=== PATIENT | male | born 1960 | race Caucasian/White ===

== ENCOUNTER → 2016-09-18 | Outpatient (CLI) | payer OTHER ==
--- NOTE | 2016-09-18 19:40 | CONS ---
DATE OF CONSULTATION: 09/18/2016 CONSULTATION/NEW PATIENT EVALUATION 56-year-old gentleman who has been evaluated in the sleep center for possible obstructive sleep apnea-hypopnea. HISTORY OF PRESENT ILLNESS/SLEEP-WAKE EVALUATION: Patient has problems with his sleep for many years basically not able to sleep normal amount of hours during the night. SLEEP SCHEDULE: He usually goes to bed 3 or 4:00 a.m. and sleeps until 8 or 9:00 a.m. and this is with usage of Amitriptyline 25 mg at bedtime. DURING SLEEP: He wakes up from sleep 4 times with nocturia, dry mouth. He has loud snoring. He also was told about episodes of stopped breathing during sleep. FALLING ASLEEP: Sometimes it takes time for him to fall asleep and again he is taking medications at the time and that helps him. DURING THE DAY/WAKE STATE: During the day feel tiredness and sleepiness, sometimes takes naps. Depue Sleepiness Scale although is 1. PAST MEDICAL HISTORY: Positive for multiple back problems secondary to ( ) and work accident. Patient had extra lumbar vertebra, anxiety. PAST SURGICAL HISTORY: Back surgery, appendectomy and right wrist surgery, right elbow surgery and right knee surgery. MEDICATIONS: 1. Hydrocodone. 2. Naproxen. 3. Soma. 4. Amitriptyline. 5. Motrin. SOCIAL HISTORY: Positive for smoking for about 30 pack-years; quit 10 years ago. Alcohol consumption none at the present time. REVIEW OF SYSTEMS: Multiple awakenings from sleep, tiredness and sleepiness and back pain. No fevers. No double vision. No recent chest pain. No shortness of breath. No abdominal pain. No bleeding episodes. No blood in urine. No seizure episodes. FAMILY HISTORY: Diabetes, fibromyalgia, arthritis. PHYSICAL EXAMINATION: GENERAL: This is a pleasant 56-year-old gentleman without distress. VITAL SIGNS: BP 132/78, HR 82, RR 16. Height 6 feet 3 inches. Weight 309. BMI 38.6. Neck 19 inches in circumference. Temperature 97.6, oxygen saturation at room air 94%. HEENT: PERRLA, EOMI oropharynx low position of soft palate. Nose, possibly nasal septum deviation. NECK: Supple. No JVD. Thyroid is not palpable. LUNGS: Clear to percussion and to auscultation. Good air exchange. No wheezing or rhonchi. HEART: S1, S2 regular. No murmurs, gallops or rubs. ABDOMEN: Slightly obese. EXTREMITIES: No clubbing or cyanosis. CADDY/CADDIE SUPERVISOR: Awake, alert, and oriented x3. Cranial nerves 2 to 7 intact. There is no fasciculation or atrophy noted. No focal deficits observed. IMPRESSION: 1. Snoring, witnessed episodes of stopped breathing during sleep, low position of soft palate, multiple awakenings from sleep. Patient takes naps during the week, obstructive sleep apnea-hypopnea syndrome. 2. Obesity; body mass index 38.6. 3. Sleep delay syndrome. Patient goes to bed every night around 3 or 4 a.m. 4. Back problems. 5. Status post back surgery on the level of L4 an dL5. 6. Spina bifida and extra vertebra L6. 7. Anxiety. 8. Difficulties initiating sleep at night, possibly secondary to anxiety. 9. Status post right knee surgery. 10. Status post laminectomy, L4-L5. 11. Status post right wrist surgery. 12. Status post left shoulder and rotator cuff surgery. 13. Status post right elbow surgery. 14. Status post appendectomy. PLAN: 1. Polysomnography for evaluation of patient's breathing during sleep. 2. CPAP/BiPAP titration if sleep study confirms obstructive sleep apnea-hypopnea syndrome. 3. Preferable position during sleep on the side. 4. No driving if patient feels any sleepiness. Patient is aware of civil and criminal liability for unsafe driving. 5. I will see patient for follow-up visit to explain results of the testing and following plan. Thank you very much for referring this patient for consultation. Sincerely, Ivan Greco MD, PhD, FAASM. Diplomat of [place] [employer], Sleep Medicine Board by [employer] [place] [employer] Certified Registered Dental Assistant of [facility] [place]
== END | disposition home or self-care (01) ==
LOC: SLEEP 14:14
PROVIDERS: ATTEND Internal Medicine
DX: G47.33 Obstructive sleep apnea (adult) (pediatric) (principal); E66.9 Obesity, unspecified; F41.9 Anxiety disorder, unspecified; Q05.7 Lumbar spina bifida without hydrocephalus; Q76.49 Other congenital malformations of spine, not associated with scoliosis; Z68.38 Body mass index [BMI] 38.0-38.9, adult; Z98.890 Other specified postprocedural states; Z79.891 Long term (current) use of opiate analgesic; Z79.1 Long term (current) use of non-steroidal anti-inflammatories (NSAID); Z79.899 Other long term (current) drug therapy
CPT/HCPCS: 99211

== ENCOUNTER → 2017-04-09 | Outpatient (CLI) | payer OTHER ==
--- NOTE | 2017-04-09 14:35 | PN ---
PROGRESS NOTE DATE OF SERVICE: 04/09/2017. 56-year-old gentleman has been followed in Sleep Center for treatment of obstructive sleep apnea-hypopnea syndrome. The patient was diagnosed with obstructive sleep apnea- hypopnea syndrome about 6 months ago. Since that time, he is on treatment with CPAP and I discussed results of sleep studies with the patient in details. During diagnostic sleep study, he had apnea-hypopnea index 12.9 for the whole night, which is in mild range, but close to moderate. In REM sleep it was in severe range index was 48.8. Lowest oxygen level was 76.4%. During titration, effective pressure was 8 cm of water and subsequently patient was started on treatment with CPAP at that pressure. Today he came for followup visit with his CPAP unit. I checked CPAP unit. The patient is using equipment 28 out of 30 nights for more than 4 hours. Average 6.6 hours, which is good compliance with treatment. Mask fitting is 99%, which is great. Apnea- hypopnea index is only 1.2, which is perfect. Patterson Sleepiness Scale today is 3. MEDICATIONS: 1. Hydrocodone. 2. Ibuprofen. 3. . 4. Amitriptyline. 5. Hydroxyzine. 6. Carisoprodol. PHYSICAL EXAM: Patient in no distress. BP 150/82, HR 100, RR 16, weight 310, temp 97.9, oxygen saturation on room air 94%. Oropharynx extremely low position of soft palate. Abdomen slightly obese. Neck Supple, no JVD. Thyroid is not palpable. LUNGS Clear to percussion and to auscultation. Good air exchange. No wheezing or rhonchi. HEART S1, S2 regular. No murmurs, gallops, or rubs. ABDOMEN Soft and nontender. Bowel sounds are present. No organomegaly appreciated. EXTREMITIES No clubbing or cyanosis. MACHINE HAND Awake, alert, and oriented X3. Cranial nerves 2 to 7 intact. There is no fasciculation or atrophy. noted. No focal deficits observed. IMPRESSION: 1. Mild obstructive sleep apnea-hypopnea syndrome, severe in REM sleep on full control with CPAP at 8 cm of water. Patient demonstrated practically 100% compliance with treatment benefitting from treatment. 2. Obesity. 3. Back problems. 4. A history of sleep delay syndrome. 5. Status post back surgery in the level L4-5. 6. History of spina bifida. 7. Anxiety. 8. Status post right knee surgery. 9. Status post laminectomy, L4, L5. 10.Status post right wrist surgery. 11.Status post left shoulder rotator cuff surgery. 12.Status post right elbow surgery. 13.Status post appendectomy. PLAN: 1. Continue treatment with CPAP every night for the whole night. 2. Losing weight. 3. Sleep hygiene with regular time in bed for at least 7-8 hours. 4. No driving if feeling sleepiness. 5. Prescription for all necessary CPAP supplies including nasal pillow mask, tube, filters. Thank you very much for allowing me to participate in management of your patient. Sincerely, Ivan Greco MD, PhD, FAASM Diplomat of [place] [employer] [place] Board [employer] Medicine Assistant City Attorney of [facility] [place] [email or web address] / APRIL: [id number] /
== END | disposition home or self-care (01) ==
LOC: SLEEP 12:53
PROVIDERS: ATTEND Internal Medicine
DX: G47.33 Obstructive sleep apnea (adult) (pediatric) (principal); E66.9 Obesity, unspecified; Q05.9 Spina bifida, unspecified; F41.9 Anxiety disorder, unspecified; Z98.890 Other specified postprocedural states; Z79.891 Long term (current) use of opiate analgesic; Z79.1 Long term (current) use of non-steroidal anti-inflammatories (NSAID); Z79.899 Other long term (current) drug therapy

== ENCOUNTER → 2020-08-22 | Outpatient (CLI) | payer OTHER ==
--- NOTE | 2020-08-22 18:34 | CONS ---
CONSULTATION DATE OF SERVICE: 08/22/2020 This 59-year-old gentleman has been re-evaluated in Sleep Center for obstructive sleep apnea-hypopnea syndrome. HISTORY OF PRESENT ILLNESS/SLEEP-WAKE EVALUATION: This patient was diagnosed with obstructive sleep apnea several years ago. At present he continues to use his CPAP equipment every night for the whole night. With the equipment he sleeps well. He does not snore with the machine. His sleep schedule is from 2 or 3 a.m. until 8 a.m. He does have problems with falling asleep and has a TV set in the bedroom. He usually sleeps on the back position. No history of hypnagogic hallucinations, sleep paralysis or cataplexy. [place] Sleepiness Scale is 1, which is normal. I checked his CPAP unit. CPAP pressure is 8 cm of water. Usage is 29/30 nights for more than 4 hours. Average usage is 7.7 hours per night. Mask fit 98%. Apnea-hypopnea index is only 1.2, which is perfect. The patient is using a Daily FX medium nasal pillow mask. PAST MEDICAL HISTORY: Positive for hypertension, back problems, left foot pain. PAST SURGICAL HISTORY: Left knee replacement, right knee surgery, laminectomy L4-L6, appendectomy. SOCIAL HISTORY: Negative for smoking or using alcohol. FAMILY HISTORY: Positive for heart problems, cancer, diabetes. REVIEW OF SYSTEMS: No fevers. No double vision. No recent chest pain. No shortness of breath. No abdominal pain. No bleeding episodes. No blood in the urine. No seizure episodes. Difficulties initiating sleep. PHYSICAL EXAMINATION: GENERAL: A pleasant gentleman without distress. VITAL SIGNS: BP 153/89, HR 85, RR 12, height 6 feet 3 inches, weight 333.0, body mass index 41.6, temperature 97.9. Oxygen saturation at room air 97%. HEENT: PERRLA, EOMI. Evaluation of oropharynx showed tongue protrudes midline. Low position of soft palate. NECK: Supple. No JVD. Thyroid is not palpable. Wide neck; 20 inches in circumference. LUNGS: Clear to percussion and to auscultation. Good air exchange. No wheezing or rhonchi. HEART: S1, S2 regular. No murmurs, gallops or rubs. ABDOMEN: Obese. EXTREMITIES: No clubbing or cyanosis. BROADCAST NEWS PRODUCER: Awake, alert, and oriented X3. Cranial nerves 2 to 7 intact. There is no fasciculation or atrophy. noted. No focal deficits observed. IMPRESSION: 1. History of obstructive sleep apnea-hypopnea syndrome. The patient demonstrated great compliance with CPAP therapy, benefitting from treatment. Normal respiration by reading from CPAP unit. 2. Obesity. Present body mass index 41.6. 3. Hypertension. 4. Back problems. 5. Left foot pain. 6. Status post left knee replacement. 7. Status post right knee surgery. 8. Status post laminectomy L4-L6. PLAN: 1. Prescription for all necessary CPAP supplies, including nasal pillow, medium-sized Daily FX mask, tube, filters. 2. Patient will continue to use CPAP equipment every night for the whole night. 3. Losing weight. 4. Sleep hygiene with regular time in bed for 7-1/2 to 8 hours. 5. No driving if feeling sleepiness. 6. Follow-up visit in 6 months. Thank you very much for allowing me to participate in the management of your patient. Sincerely, Ivan Greco MD, PhD, FAASM Diplomat of [place] [employer] [place] [employer] Medicine Telephone Messenger of [facility] [place] MMODL / IJN: [id number] /
== END | disposition home or self-care (01) ==
LOC: SLEEP 15:36
PROVIDERS: ATTEND Internal Medicine
DX: G47.33 Obstructive sleep apnea (adult) (pediatric) (principal); E66.9 Obesity, unspecified; I10 Essential (primary) hypertension; M43.9 Deforming dorsopathy, unspecified; Z68.41 Body mass index [BMI] 40.0-44.9, adult; Z98.890 Other specified postprocedural states; Z96.652 Presence of left artificial knee joint; M79.672 Pain in left foot

== ENCOUNTER → 2022-05-21 | Outpatient (CLI) | payer OTHER ==
--- NOTE | 2022-05-21 14:41 | NM ---
EXAMINATION TYPE: NM bone 3 phase DATE OF EXAM: 05/21/2022 COMPARISON: NONE HISTORY: Left knee pain Triple phase bone scintigraphy was performed following the injection of 24.7 mCi Tc 99m MDP. Immedia te images and 5 hours post injection images acquired. FINDINGS: There is increased radiotracer accumulation to the left knee compared to the right. Blood pool: There is increased radiotracer through the left knee compared to the right. Left knee pro sthesis is evident. Static images: There is marked increased radiotracer accumulation at the left knee compared to the ri ght. This is greater along the lateral tibial plateau. Correlate with the timing of the patient's cathleen jared. There is some focal radiotracer accumulation in small areas adjacent to the right knee and at the kiersten ateral ankles. This is nonspecific and likely related to degenerative change. Small focal area of rad iotracer is in the posterior right 10th rib region may be a posttraumatic change. IMPRESSION: Increased radiotracer surrounding the left knee greater along the lateral tibial plateau. Correlate w ith the timing of the left knee prosthesis placement. Loosening and postsurgical change could be cons idered.
== END | disposition home or self-care (01) ==
LOC: RADNMMAIN 07:17
PROVIDERS: ATTEND Orthopaedic Surgery Adult Reconstructive Orthopaedic Surgery
DX: M25.562 Pain in left knee (principal); Z96.652 Presence of left artificial knee joint
CPT/HCPCS: 78315; A9503

== ENCOUNTER → 2022-05-29 | Outpatient (CLI) | payer OTHER ==
--- NOTE | 2022-05-30 07:21 | NM ---
EXAMINATION TYPE: NM WBC limited DATE OF EXAM: 05/29/2022 COMPARISON: Three-phase bone scan May 21, 2022. Outside left knee x-ray May 13, 2022. HISTORY: Multiple knee surgeries last being May 2021 with persistent left knee pain. TECHNIQUE: Following administration of 16 mCi Tc99m Ceretec. Images obtained 3 hours post injection . FINDINGS: Lucency from metallic prosthesis left knee is present. Current study shows increased radiot racer uptake surrounding the prosthesis greater involvement in the distal femur though there is some increased radiotracer uptake in the medial tibia. IMPRESSION: Prosthetic infection needs to be considered. Normal white blood cell scan. No evidence for abnormal tracer activity.
== END | disposition home or self-care (01) ==
LOC: RADNMMAIN 06:38
PROVIDERS: ATTEND Orthopaedic Surgery Adult Reconstructive Orthopaedic Surgery
DX: M25.562 Pain in left knee (principal)
CPT/HCPCS: 78300; A9569

== ENCOUNTER → 2022-11-03 | Outpatient (CLI) | payer OTHER ==
[2022-11-03 13:26] LABS: African American GFR (CKD) >90 (>60 ml/min/1.73 sqM); Blood Urea Nitrogen 22 mg/dL (9-20); Non-African American GFR(CKD) >90 (>60 ml/min/1.73 sqM)
--- NOTE | 2022-11-03 15:01 | CT ---
EXAMINATION TYPE: CT angio chest CT DLP: 1488.1 mGycm, Automated exposure control for dose reduction was used. DATE OF EXAM: 11/03/2022 1:54 PM COMPARISON: None. 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 TECHNIQUE/CONTRAST: CTA scan of the thorax is performed with IV Contrast, patient injected with 100ml mL of Isovue 370, p ulmonary embolism protocol. MIP images are created and reviewed these are created on a separate work station.. FINDINGS: Pulmonary Artery: There is no evidence for a central filling defect within the pulmonary vasculature to suggest acute pulmonary embolism. Limited evaluation of the segmental and subsegmental branches se condary to bolus timing. The pulmonary artery is of normal size. Lungs/Pleura: No evidence of focal consolidation, pleural effusion or pneumothorax. Airway: Large airways are patent. Heart: The heart is mildly enlarged for size. Vasculature: No evidence of aortic aneurysm. Mediastinum: No gross evidence of adenopathy. Musculoskeletal: Mild degenerative disc disease changes are present throughout the thoracolumbar spin e. Soft Tissues: Increased density posterior to the nipples bilaterally consistent with gynecomastia. Lower neck: No significant findings. Upper Abdomen: Left hepatic lobe cyst. IMPRESSION: No evidence of central pulmonary embolism. Limited evaluation of the segmental and subsegmental branc hes secondary to poor bolus timing.
== END | disposition home or self-care (01) ==
LOC: RADCTMAIN 12:57
PROVIDERS: ATTEND Internal Medicine Critical Care Medicine
DX: I26.99 Other pulmonary embolism without acute cor pulmonale (principal)
CPT/HCPCS: 82565; 84520; 71275; 36415; Q9967

== ENCOUNTER → 2023-03-23 | Outpatient (CLI) | payer OTHER ==
--- NOTE | 2023-03-23 11:50 | FL ---
EXAMINATION TYPE: FL barium swallow DATE OF EXAM: 03/23/2023 11:31 AM COMPARISON: Chest radiograph from same day. CLINICAL INDICATION:Male, 62 years old with history of R13.12 DYSPHAGIA; Pt c/o intermittent episodes of choking/food getting stuck x a couple of months. TECHNIQUE: The procedure was explained and patient history elicited. All patient questions were ans wered prior to start of procedure. Multiple spot fluoroscopic images of the esophagus were obtained a fter the oral ingestion of effervescent crystals and liquid barium as the contrast agent. Fluoroscopic time: 26 seconds Fluoroscopic images: 0 Radiographs taken: 74 DAP: 2034.23 mGym2 FINDINGS: The esophagus demonstrates normal primary and secondary peristalsis. The esophageal mucosa is smooth without evidence of focal stricture, ulceration, or abnormal outpouching. No gastroesophageal reflu x disease was identified. IMPRESSION: Normal esophagram.
== END | disposition home or self-care (01) ==
LOC: RADUSWWP 10:18
DX: R13.12 Dysphagia, oropharyngeal phase (principal); R09.89 Other specified symptoms and signs involving the circulatory and respiratory systems
CPT/HCPCS: 74220

== ENCOUNTER → 2023-05-26 | Outpatient (CLI) | payer OTHER ==
--- NOTE | 2023-05-26 10:59 | MR ---
EXAMINATION TYPE: MR shoulder LT wo con DATE OF EXAM: 05/26/2023 COMPARISON: Outside radiograph 05/22/2023 HISTORY: 62-year-old male M2 5.512, Left shoulder pain, fell on ice. TECHNIQUE: Multiplanar, multisequence imaging of the left shoulder is performed without contrast. FINDINGS: The exam is motion degraded. There is an interstitial versus tear of the intracapsular port ion of the long head biceps tendon. The extracapsular portion remains appropriately situated along th e bicipital groove with mild tenosynovial fluid. Diffuse heterogeneity of the subscapularis tendon. Some intrasubstance changes present in the majorit y of the tendon remains intact. Moderate to severe degenerative change at the acromioclavicular joint. Inferior spurring as some mass effect on the underlying myotendinous junction of the supraspinatus. There is bursal sided fraying of the supraspinatus tendon with diffuse intrasubstance change but no h igh-grade partial or full-thickness tear is seen. The infraspinatus tendon remains intact. There is a small to moderate acromial/subdeltoid bursal effusion. No atrophy of the rotator cuff musculature. Suspect normal variation with a sublabral foramen along the anterior superior quadrant of the glenoid . There is abnormal signal and heterogeneous appearance along the anterior inferior corner of the gleno id with suspected small fracture at the rim of the glenoid. Adjacent soft tissue swelling. However, no corresponding Hill-Sachs deformity is identified. Joint otherwise intact. Mild thinning of the glenohumeral joint articular cartilage. No significant j oint effusion. Heterogeneous red marrow hyperplasia can be seen with anemia, obesity, smoking, chronic disease. IMPRESSION: 1. Suspect a subtle nondisplaced fracture along the anterior inferior glenoid rim. No corresponding H ill-Sachs deformity to clearly indicate a bony Bankart injury. Clinically correlate. 2. Diffuse contusions of the subscapularis tendon and supraspinatus tendon. The supraspinatus tendon shows scattered intrasubstance change and bursal sided fraying. No high-grade partial or full-thickne ss rotator cuff tear. 3. Either an interstitial versus split tear of the intracapsular portion of the long head biceps tend on. Associated mild tenosynovitis. 4. Moderate subacromial/subdeltoid bursal effusion probably reactive to the patient's injury. 5. Moderate to severe AC joint OA with subacromial impingement.
== END | disposition home or self-care (01) ==
LOC: RADMRIMAIN 08:18
PROVIDERS: ATTEND Orthopaedic Surgery
DX: M19.012 Primary osteoarthritis, left shoulder (principal); M65.812 Other synovitis and tenosynovitis, left shoulder; M25.812 Other specified joint disorders, left shoulder; M75.42 Impingement syndrome of left shoulder; W00.0XXA Fall on same level due to ice and snow, initial encounter

== ENCOUNTER → 2023-06-05 | Outpatient (CLI) | payer OTHER ==
[2023-06-05 12:16] LABS: African American GFR (CKD) >90 (>60 ml/min/1.73 sqM); Blood Urea Nitrogen 25 mg/dL (9-20); Non-African American GFR(CKD) >90 (>60 ml/min/1.73 sqM)
--- NOTE | 2023-06-05 14:06 | CT ---
EXAMINATION TYPE: CT soft tissue neck w con CT DLP: 770 mGycm, Automated exposure control for dose reduction was used. DATE OF EXAM: 06/05/2023 12:35 PM COMPARISON: None. 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 Axial sections with coronal and sagittal reformats were obtained. Contrast used:100 mL of Isovue 300 with IV Contrast, (None if empty) Oral contrast used: (None if empty) FINDINGS: Brain: Visualized portions are grossly unremarkable. Orbits: Unremarkable Sinuses: Grossly unremarkable. Spaces of the neck: Dominant left neck. Tissue mass just deep to the sternocleidomastoid muscle on th e multiple small lymph nodes around this lesion. Largest measures 31 x 30 mm there is thickening of t he mucosa on the left near the base of the tongue compatible with history of left tonsillar neoplasm. A projection off the inferior aspect of this mass suspicious on sagittal imaging series 5 image 78r be a cystic lymph node measuring up to 18 x 13 mm Musculoskeletal: No acute osseous pathology. Lymph nodes: Multiple nonenlarged lymph nodes are seen along both anterior chains of the neck. Vascular structures: Visualized major arteries are patent without evidence of aneurysm. Thoracic Inlet/airway: Airway is patent. The lung apices are clear. Soft tissues/Thyroid: Thyroid and remainder of the soft tissues are unremarkable. Other: none. IMPRESSION Findings concerning for metastatic disease to the neck lymph nodes. Increased soft tissue in the renu on of the left tonsil is also suspicious. Oncologic workup recommended. PET/CTs recommended.
== END | disposition home or self-care (01) ==
LOC: RADCTMAIN 11:40
PROVIDERS: ATTEND Otolaryngology
DX: Z01.818 Encounter for other preprocedural examination (principal); D10.4 Benign neoplasm of tonsil
CPT/HCPCS: 82565; 84520; 70491; 36415; Q9967

== ENCOUNTER → 2023-06-11 | Outpatient (CLI) | payer OTHER ==
--- NOTE | 2023-06-17 13:53 | PE ---
EXAMINATION TYPE: PET CT fusion skull to thigh DATE OF EXAM: 06/11/2023 COMPARISON: CT soft tissue neck 06/05/2023 Prior PET/CT: None at this location HISTORY: Neoplasm of tonsil TECHNIQUE: Following the intravenous administration of 12.61 mCi of F-18 FDG, whole body images are performed from the skull base to the midthigh. Images are reviewed on the computer in the coronal, a xial, and sagittal planes. Reconstructed rotating images are created on independent workstation and reviewed on the computer. A localization and attenuation correction CT is performed in conjunction with the PET scan. Due to severe pain at the shoulder the patient was unable to complete the exam. The exam is limited n anirudh imaging and some limited whole-body images through the upper head and shoulders which point the p atient stopped the exam DLP: 1265.20 mGycm SCAN: Initial Blood glucose: 100 mg/dL Average Mediastinum SUV: Unavailable Average Liver SUV: Unavailable FINDINGS: NECK: There is marked increased radiotracer accumulation within the left tonsil, example image 39, S UV 13.06. There is a large significantly enhancing mass in the left soft tissues at the angle of the left jaw. SUV 13.21, example image 39. Finding is suspicious for a large metastatic lymph node. There are some vague uptake within a lymph node in the posterior triangle left neck. Image 43, SUV 2. 95. Early metastatic lesion is not excluded. Partially visualized left axillary uptake may be present. Is unclear whether this is vascular or a ly mph node. There are multiple scattered lymph nodes without significant uptake present Thorax, abdomen, pelvis, osseous structures through these levels: Procedure terminated prior to imagi ng post PET injection, these areas cannot be evaluated at this time. LOCALIZATION CT: There are multiple bilateral neck lymph nodes present. These are greater on the left than the right. COMPARISON: None IMPRESSION: 1. Marked increased uptake within a left neck mass at the angle of the jaw may be a metastatic lymph node. 2. There is some mild uptake within the posterior left neck lymph node. 3. There are multiple additional lymph nodes present without significant uptake within the bilateral neck. 4. Uptake within the left tonsillar pillar can be compatible with the patient's reported primary. 5. There is limitation of this examination with the procedure being terminated prior to PET imaging b elow the supraclavicular region.
== END | disposition home or self-care (01) ==
LOC: RADPETMAIN 06:47
PROVIDERS: ATTEND Otolaryngology
DX: C09.9 Malignant neoplasm of tonsil, unspecified (principal); R22.1 Localized swelling, mass and lump, neck
CPT/HCPCS: 78815; A9552

== ENCOUNTER → 2023-11-12 | Outpatient (CLI) | payer OTHER ==
--- NOTE | 2023-11-13 14:14 | PE ---
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 Images are reviewed on the computer in the coronal, axial, and sagittal planes. Reconstructed rotating images are created on independent workstation and reviewed on the computer. A non-contrast CT is performed in conjunction with the PET scan. Glucose level 107 mg/dL CT DLP: 1488.52 mGycm, Automated exposure control for dose reduction was used. COMPARISON: CT 06/05/2023, PET/CT 06/11/2023, MRI: None FINDINGS: Mediastinal SUV mean is 3.63. Hepatic parenchyma SUV mean is 4.61. SKULL BASE AND NECK: Marked decreased size of left neck mass at the level 2 region from prior PET/CT with residual FDG avid 1.0 cm nodular region measuring 8.55 maximum SUV, previously measured grossly 4.8 x 2.7 cm with a maximum SUV of 13.21. Stable prominent left submandibular measuring up to 9 mm w ith a maximum SUV of 2.61 which is below background. Markedly decrease in size of previously demonstr ated left tonsillar region lesion with nonvisualization of lesion on today's exam. Marked decrease de crease in SUV activity in this region now measuring 3.19. Previously maximum SUV 13.06. CHEST, MEDIASTINUM, AND HILAR REGION: No suspicious radiotracer activity. Previous seen left axillary uptake is no longer visualized. ABDOMEN AND PELVIS: No suspicious radiotracer activity. MUSCULOSKELETAL STRUCTURES: No suspicious radiotracer activity. OTHER CT: No other significant findings. IMPRESSION: Positive response to therapy with essential resolution of left tonsillar pillar mass with maximal SUV below background. Markedly decreased size of left neck mass at the angle of jaw with residual 1 cm F DG avid nodule within the decreased FDG activity. No new lymphadenopathy or new FDG avid regions iden tified.
== END | disposition home or self-care (01) ==
LOC: RADPETMAIN 13:08
PROVIDERS: ATTEND Radiology Radiation Oncology
DX: C77.0 Secondary and unspecified malignant neoplasm of lymph nodes of head, face and neck (principal); C09.0 Malignant neoplasm of tonsillar fossa; R22.1 Localized swelling, mass and lump, neck
CPT/HCPCS: 78815; A9552

== ENCOUNTER → 2023-12-14 | Outpatient (CLI) | payer OTHER ==
--- NOTE | 2024-01-05 13:32 | CT ---
Patient: Louise Judd R Ordering Physician: Unknown, Unknown ID: [id number] Phone, Pager: Phone: N/ A Pager: N/A : 1960 Age/Gender: 63Y, M Primary Location: N/A Procedure: CT soft tissue neck w o/w con Study Date: 12/14/2023 1:19:00 PM EXAMINATION TYPE: CT soft tissue neck w con DATE OF EXAM: 12/16/2023 COMPARISON: 11/13/2023 PET/CT HISTORY: Throat cancer CT DLP: 1597.7 mGycm CONTRAST: Patient injected with 100 mL of Isovue 300. TECHNIQUE: Axial images at 3 mm thick sections. Reconstructed images in the coronal plane and sagitt al plane are reviewed. FINDINGS: Limited CT sections are obtained the lung apices. The lung apices appear clear. CT neck: The torus tubarius and fossa of Rosenmuller are normal. Topper Press Operator spaces are normal. Para nasal sinuses and mastoid air cells are clear. Parotid glands appear normal and symmetrical. Submandibular glands, are normal. Parapharyngeal spac es are normal. Small left parapharyngeal lymph nodes are present asymmetric with the right. There is a 1.2 cm left submandibular lymph node. Previous measurement 0.9 m. Some additional shoddy l ymphadenopathies in the left submandibular region. The hypopharynx appears within normal limits. Vocal cord level appear symmetrical. Thyroid as visualized is normal. Degenerative disc changes are present C5-6 C6-7. Prevertebral space is normal. Epiglottis appears nor mal. IMPRESSION: 1. 1.2 cm enlarging lymph node left submandibular region corresponds to the PET CT.
== END | disposition home or self-care (01) ==
LOC: RADCTMAIN 11:00
PROVIDERS: ATTEND Radiology Radiation Oncology
DX: C09.0 Malignant neoplasm of tonsillar fossa (principal); C77.0 Secondary and unspecified malignant neoplasm of lymph nodes of head, face and neck; M50.323 Other cervical disc degeneration at C6-C7 level
CPT/HCPCS: 70492; Q9967

== ENCOUNTER 2024-03-10 09:22 | Day surgery (SDC) | payer OTHER ==
[2024-03-08 08:49] VITALS: BMI 34.0
--- NOTE | 2024-03-10 00:50 | HP ---
HISTORY AND PHYSICAL DATE OF SURGERY: 03/10/2024. HISTORY OF PRESENT ILLNESS: Louise Judd is a 63-year-old gentleman who was seen with progressive left shoulder pain. After having treatment options discussed, he elected to proceed with left shoulder arthroscopy. Consent was obtained. PAST MEDICAL HISTORY: Hypertension, xiy-fbnpwmz-fefsieksk diabetes. PAST SURGICAL HISTORY: Appendectomy, herniorrhaphy, knee arthroscopy, spine surgery. DAILY MEDICATIONS: 1. Glipizide. 2. Hydralazine. 3. Jardiance. 4. Metformin. 5. Motrin. ALLERGIES: Heparin, Parafon Forte, Robaxin, vancomycin. SOCIAL HISTORY: Denies tobacco use. PHYSICAL EVALUATION OF THE LEFT SHOULDER: Flexion is 90 degrees, abduction is 70 degrees. External rotation is 40 degrees with pain and weakness. He has tenderness along the anterolateral acromion, bicipital groove, rotator cuff tendon tear and proximal biceps tendon. His impingement sign is positive at 90 degrees. Cross-body adduction sign is positive. Drop-arm sign is positive. Distal neurovascular exam is intact. IMAGING STUDIES: Radiographs of the left shoulder revealed a type 2 acromion, acromioclavicular joint osteoarthritis and cystic changes of the tuberosity. MRI of left shoulder revealed a partial rotator cuff tendon tear, partial biceps tendon tear along with acromioclavicular joint osteoarthritis. IMPRESSION: 1. Left shoulder impingement with partial rotator cuff tendon tear. 2. Left shoulder partial biceps tendon tear. 3. Left shoulder acromioclavicular joint osteoarthritis. 4. Nwd-jzthjie-orykormxb diabetes. PLAN: Left shoulder arthroscopy with subacromial decompression, rotator cuff repair, Troy procedure, biceps tenodesis, and debridement. MMODL / IJN: [id number] /
[~2024-03-10 09:22] MED LIST: LIDOCAINE 1% (10MG/ML) FOR IV START INTRADERMA PRN; droPERidol 5 MG/2 ML VIAL IVP ONE
[2024-03-10] MEDS: IV FLUID CONTINUATION 1,000 ML IV ONE (10:24)
[2024-03-10] MEDS: LACTATED RINGERS 1,000 ML IV SCH (10:34)
[2024-03-10 10:36] LABS: Glucose,Whole Blood 112 mg/dL (70-110)
[2024-03-10] MEDS: ONDANSETRON 4 MG/2 ML VIAL IVP ONE (10:38)
[2024-03-10] MEDS: MIDAZOLAM 2 MG/2 ML VIAL IV ONE (11:14)
[2024-03-10] MEDS ORDERED: PROPOFOL 10 MG/ML 20 ML VIAL IV ONE (11:21)
[2024-03-10] MEDS ORDERED: fentaNYL (PF) 50 MCG/ML 2 ML AMP ONE (11:21)
[2024-03-10] MEDS ORDERED: ePHEDrine 50 MG/ML 1 ML VIAL ONE (11:21)
[2024-03-10] MEDS ORDERED: LIDOCAINE 1% INJ 10MG/ML (20 ML MDV) ONE (11:21)
[2024-03-10] MEDS ORDERED: DEXAMETHASONE SOD PHOSPHATE 4 MG/ML 1 ML VIAL ONE (11:21)
[2024-03-10] MEDS ORDERED: ROPIVACAINE 5 MG/ML 30 ML VIAL ONE (11:21)
[2024-03-10] MEDS ORDERED: SUCCINYLCHOLINE CHLORIDE 200 MG/10 ML VIAL IV ONE (11:21)
[2024-03-10] MEDS: ceFAZolin 3 GM in SODIUM CHLORIDE 0.9% 100 ML IVPB PRN (11:26)
[2024-03-10 13:35] VITALS: TEMP 97.6
[2024-03-10] MEDS: LACTATED RINGERS 1,000 ML IV ONE (13:35)
--- NOTE | 2024-03-10 13:40 | P.OP ---
Date of Procedure: 03/10/24 Preoperative Diagnosis: Left shoulder impingement Postoperative Diagnosis: 1. Left shoulder rotator cuff tear 2. Left shoulder impingement 3. Left shoulder bicipital tendinitis 4. Left shoulder acromioclavicular joint osteoarthritis 5. Left shoulder superficial labral tear Procedure(s) Performed: 1. Left shoulder arthroscopic rotator cuff repair 2. Left shoulder arthroscopic subacromial decompression 3. Left shoulder arthroscopic biceps tenodesis 4. Left shoulder arthroscopic Troy procedure 5. Left shoulder arthroscopic debridement labral tear Implants: 5Arthrex 4.75 swivel lock anchors Anesthesia: GETA, regional (Interscalene block) Surgeon: Tobin Carlson Lawyer #1: Jude Kevin Estimated Blood Loss (ml): 12 Pathology: none sent Condition: stable Disposition: PACU Indications for Procedure: 63-year-old gentleman seen progressive left shoulder pain. After having treatment options discussed, he elected to proceed with arthroscopy. Operative Findings: See description of procedure Description of Procedure: Patient underwent an interscalene block by department of anesthesia. The patient was then taken to the operative suite. The patient underwent a general anesthetic by the department of anesthesia. The patient was placed into a lateral position and secured. There was appropriate padding of the bony prominence. Left shoulder was then prepped and draped in normal sterile orthopedic fashion. We placed the extremity in 10 pounds of longitudinal traction. A posterior incision was now made for a posterior working portal site. The trocar and cannula were inserted into the glenohumeral joint. Arthroscopy was initiated. Spinal needle was now inserted anteriorly, to ascertain the anterior working portal site. An incision was now made in that area, a trocar was inserted followed by a probe. There was superficial tearing of the superior labrum. There was hyperemia long head biceps tendon consistent with bicipital tendinitis. There were grade I chondromalacia changes of the humeral head without tears. I debrided the superficial labral tear getting down to stable labral tissue. I decided to proceed with an arthroscopic biceps tenodesis. I placed a cannula through the anterior portal site. With the assistance of Jay Jay ESTES I passed a loop and tack type stitch through the biceps tendon and release it from the superior labral anchor. I partial at the interval for insertion of an anchor. The suture limb was passed through the eyelet of an Arthrex 4.75 swivel lock anchor. I placed the eyelet into the preplanned hole, held in position while Jay Jay ESTES tensioned the suture and deployed the anchor with good fixation noted. The residual suture limb was clipped. There was a stable steps tenodesis present. Instruments were now removed from the glenohumeral joint. Utilizing the posterior working portal site, the trocar and cannula were inserted into the subacromial space. Arthroscopy initiated. I made an incision 2 fingerbreadths lateral to the acromion. I introduced my trocar followed by my ArthroCare ablator. I now began ablating thick subacromial bursal tissue, which exposed the undersurface of the anterior acromion. There was diminished subacromial space. There was a very prominent anterior acromion. A motorized bur was introduced and a subacromial decompression was performed. I also excised some osteophytes off the inferior aspect of the distal clavicle. The AC joint was visualized and noted to be fairly arthritic. The motorized bur was introduced in the anterior portal site and a Troy procedure was performed without difficulty removing 8 mm of bone off the distal clavicle, decompressing the AC joint nicely. I turned my attention to the rotator cuff. There was a 2.53 cm rotator cuff tear. I debrided the margins getting down to stable tendon tissue. Tear defect measured about 3 cm and was freely mobile over the footprint. I introduced my motorized bur and abraded the footprint area, getting some petechial bleeding. I now made an accessory portal site off the lateral aspect of the acromion. I punched to holes medial for medial row fixation with the assistance of Jay Jay ESTES carefully tapping the punch with a mallet as I held the punch and the camera. I now introduced both anchors into the pre-punched holes and Jay Jay ESTES tapped them with the mallet as I held anchors and the camera. Jay Jay ESTES now screwed the anchors in place a while I held the anchor guide and camera. All 8 limbs of suture were now passed through good bites of rotator cuff tendon. I now punched 2 holes for lateral row fixation again I held the punch and camera while Jay Jay ESTES used a mallet to tap in the punch. We now passed sutures through both anchors and individually I introduced the anchors into the pre-punch holes I held the anchor guide in position with one hand holding the camera with the other hand while Jay Jay ESTES tensioned the sutures and screwed in the anchors one at a time. All residual suture limbs were now clipped. We had good compression of the tendon along the entire footprint. Instruments now removed from the portal sites. All portal sites were approximated with nylon suture. Sterile dressings were applied followed by a shoulder immobilizer. Jude ESTES assisted in this complex case. The patient was awakened, transferred to a bed, and taken to recovery in stable condition.
[2024-03-10] MEDS: HYDROmorphone 0.5 MG/0.5 ML SYRINGE IVP PRN (13:41)
[2024-03-10 14:17] VITALS: RESP 18
[2024-03-10 15:23] VITALS: BP 121/60; PULSE 77
--- NOTE | 2024-03-11 07:21 | P.ANPRN ---
Procedure Note - Anesthesia - Nerve Block Performed Left Interscalene Single Time Out Performed: Yes Date of Procedure: 03/10/24 Procedure Start Time: 11:13 Procedure Stop Time: :20 Location of Patient: PreOp Indication: Acute Post-Operative Pain, Requested by Surgeon Sedation Type: Sedate with meaningful contact maintained Preparation: Sterile Prep Position: Supine Needle Types: Pajunk Needle Gauge: 21 Ultrasound used to visualize needle placement: Yes Ultrasound used to observe medication spread: Yes Blood Aspirated: No Pain Paresthesia on Injection Noted: No Resistance on Injection: Normal Image Stored and Saved: Yes Events: Uneventful and Well Tolerated (Ropivacaine 0.5% 20 cc plus dexamethasone 4 mg)
== END 2024-03-10 16:23 | disposition home or self-care (01) ==
LOC: OR 09:22
PROVIDERS: ATTEND Orthopaedic Surgery
DX: S46.012A Strain of muscle(s) and tendon(s) of the rotator cuff of left shoulder, initial encounter (principal); S46.212A Strain of muscle, fascia and tendon of other parts of biceps, left arm, initial encounter; M75.22 Bicipital tendinitis, left shoulder; M19.012 Primary osteoarthritis, left shoulder; E11.9 Type 2 diabetes mellitus without complications; N40.1 Benign prostatic hyperplasia with lower urinary tract symptoms; G47.33 Obstructive sleep apnea (adult) (pediatric); I10 Essential (primary) hypertension; Z90.49 Acquired absence of other specified parts of digestive tract; Z88.8 Allergy status to other drugs, medicaments and biological substances; Z88.1 Allergy status to other antibiotic agents; Z79.84 Long term (current) use of oral hypoglycemic drugs; Z79.899 Other long term (current) drug therapy; X58.XXXA Exposure to other specified factors, initial encounter
CPT/HCPCS: 64415; 29824; 29827; 29828; 29826; C1713 ×2; J2250; J0330; J1100; J0690; J2405; J2003; J3010; J2795; J2704; J1171

== ENCOUNTER → 2024-06-28 | Outpatient (CLI) | payer OTHER ==
[2024-06-28 14:15] LABS: African American GFR (CKD) 84 (>60 ml/min/1.73 sqM); Blood Urea Nitrogen 31 mg/dL (9-20); Non-African American GFR(CKD) 72 (>60 ml/min/1.73 sqM)
--- NOTE | 2024-06-28 15:31 | CT ---
EXAMINATION TYPE: CT neck chest w con DATE OF EXAM: 06/28/2024 2:53 PM COMPARISON: CT soft tissue neck dated 12/14/2023. 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 Axial images are obtained, coronal and sagittal reformatted images are reviewed. CT DLP: [address] CTDI: mGy Automated exposure control for dose reduction was used. Findings: CT CHEST: There is no suspicious lung mass or nodule. There is no lung consolidation or abnormal interstitial density. There is no pleural effusion or pneumothorax. The great vessels and heart are normal in size. There is no mediastinal, hilar or axillary adenopathy. Limited scanning through the upper abdomen reveals no gross abnormality. There are no focal osseous lesions. CT soft tissue neck: FINDINGS: There are no supraclavicular lymph nodes. There is no thyroid mass or gross enlargement. The larynx including the cricoid, arytenoid and thyroid cartilages as well as the vocal cords are nor mal and symmetric. The tongue base, epiglottis, aryepiglottic folds, piriform sinuses and vallecula are normal and symme tric. The parotid and submandibular glands are normal and symmetric without focal mass or gross enlargement . There is no pharyngeal or parapharyngeal soft tissue mass or enhancement The great vessels of the neck are normal. There are postsurgical changes in the left neck soft tissues anterior to the sternocleidomastoid musc le. There is no recurrent mass or adenopathy. There is no soft tissue swelling, inflammation or abscess. Mild chronic inflammatory changes in the right maxillary sinus. IMPRESSION: 1. No evidence of metastatic disease to the chest. 2. No evidence of recurrent neoplasm in the soft tissues of the neck. [facility], , 06/28/2024 3:29 PM
== END | disposition home or self-care (01) ==
LOC: RADCTMAIN 13:36
PROVIDERS: ATTEND Internal Medicine
DX: C09.1 Malignant neoplasm of tonsillar pillar (anterior) (posterior) (principal); E11.9 Type 2 diabetes mellitus without complications; I10 Essential (primary) hypertension; Z71.3 Dietary counseling and surveillance
CPT/HCPCS: 82565; 84520; 70491; 71260; 36415; Q9967

== ENCOUNTER → 2024-08-23 | Outpatient (CLI) | payer OTHER ==
--- NOTE | 2024-08-23 14:28 | FL ---
EXAMINATION TYPE: FL barium swallow w video DATE OF EXAM: 08/23/2024 MODIFIED SWALLOW / DEGLUTITION STUDY CLINICAL HISTORY: Dysphagia. History of throat cancer status post treatment. TECHNIQUE: Deglutition study is performed utilizing thin liquid barium, barium thick putting, and ba rium coated cracker. 1 minute 8 seconds of fluoro time and 14 images obtained. Total dose area prod uct (DAP) in uGy*m?, mGy*cm? (or similar): n/p COMPARISON: None. FINDINGS: The oral and pharyngeal phases show satisfactory initiation and propagation with all modali ties tested. Numerous surgical clips in the surrounding soft tissue is present in Normal mastication is seen with solid modalities tested. There is no evidence of penetration or aspiration with any mo dality tested. Mild pharyngeal residue was appreciated with more viscous modalities. IMPRESSION: No aspiration observed. Please refer to speech therapist notes for further details if ne cessary. [facility], , 08/23/2024 2:25 PM
== END | disposition home or self-care (01) ==
LOC: RADFLMAIN 11:33
PROVIDERS: ATTEND Otolaryngology
DX: C09.9 Malignant neoplasm of tonsil, unspecified (principal)
CPT/HCPCS: 74230